=== PATIENT | male | born 1965 | race African-American/Black ===

== ENCOUNTER 2018-09-13 08:46 | Emergency (ER) | payer MEDICAID, OTHER ==
[~2018-09-13] VITALS: Ht 182.9 cm; Wt 104.0 kg
[2018-09-13 11:19] LABS: BASOPHILS % 0.5 % (0.0-2.0); EOSINOPHILS % 3.5 % (0.0-5.0); HEMATOCRIT. 37.4 % (42.0-52.0); HEMOGLOBIN. 12.3 g/dL (14.0-18.0); LYMPHOCYTES % 19.7 % (20.0-50.0); MEAN CORPUSCULAR HEMOGLOBIN 28.5 pg (28.0-32.0); MEAN CORPUSCULAR VOLUME 86.5 fL (80.0-94.0); MEAN PLATELET VOLUME 8.5 fl (7.4-10.4); MONOCYTES % 7.8 % (2.0-8.0); NEUTROPHILS % 68.5 % (40.0-76.0); PLATELET 193 x1000/uL (130-400); RED BLOOD CELL COUNT 4.32 mill/uL (4.7-6.1); RED CELL DISTRIBUTION WIDTH 14.6 % (11.6-14.6)
[2018-09-13 11:22] LABS: CHLORIDE 110 mEq/L (98-107)
[2018-09-13 11:23] LABS: PROTHROMBIN TIME 10.6 sec (9.6-11.0)
[2018-09-13] MEDS ORDERED: LEVETIRACETAM 500MG PREMIX 100 ML IV ONE (13:45)
[2018-09-13 15:05] VITALS: BP 150/80
== END 2018-09-13 15:10 | disposition home or self-care (01) ==
LOC: ER 08:46 → CANBEDREQ 15:48
DX: R56.9 Unspecified convulsions (principal); E11.9 Type 2 diabetes mellitus without complications; I11.9 Hypertensive heart disease without heart failure; Z86.73 Personal history of transient ischemic attack (TIA), and cerebral infarction without residual deficits
CPT/HCPCS: 36415; 70450; 71045; 80053; 82962; 83605; 83880; 84484; 85025; 85610; 93005; 96365; 99284; J1953; Z7610